=== PATIENT | male | born 2000 | race Caucasian/White ===

== ENCOUNTER 2021-06-26 18:22 | Emergency (ER) | payer OTHER ==
[~2021-06-26] VITALS: Ht 182.9 cm; Wt 75.1 kg
[2021-06-26] MEDS ORDERED: LORazepam 0.5 MG TAB PO ONE (20:10)
[2021-06-26 20:35] VITALS: BP 123/56
== END 2021-06-26 20:39 | disposition home or self-care (01) ==
LOC: M ED 20:16
DX: F41.1 Generalized anxiety disorder (principal); F17.200 Nicotine dependence, unspecified, uncomplicated